=== PATIENT | male | born 1975 | race Two or more races ===

== ENCOUNTER → 2020-01-19 | Emergency (ER) | payer OTHER, SELFPAY ==
[~2020-01-19] VITALS: Ht 180.3 cm; Wt 81.6 kg
[2020-01-19 12:12] VITALS: BP 118/74
== END | disposition home or self-care (01) ==
LOC: ER 11:35
DX: U07.1 COVID-19 (principal); J18.9 Pneumonia, unspecified organism
CPT/HCPCS: 71045; 87635